=== PATIENT | male | born 1930 | race African-American/Black ===

== ENCOUNTER 2019-10-16 13:43 | Inpatient (IN) | payer MEDICARE ==
[~2019-10-16] VITALS: Ht 172.7 cm; Wt 64.4 kg
--- NOTE | 2019-10-16 14:25 | NUR ---
IV LINE STARTED BLOOD DRAWN AND SENT TO LAB.
--- NOTE | 2019-10-16 14:57 | NUR ---
DR YEUNG AT BEDSIDE FOR EVAL.
[2019-10-16 15:18] LABS: BASOPHILS # (AUTO) 0.1 /CMM (0.0-0.2); BASOPHILS % (AUTO) 0.7 % (0.0-2.0); EOSINOPHILS % (AUTO) 3.3 % (0.0-6.0); HEMATOCRIT 23 % (39-51); HEMOGLOBIN 7.2 g/dL (13.5-17.5); LYMPHOCYTES % (AUTO) 11.2 % (20.0-44.0); MEAN CORPUSCULAR HGB CONC 31 g/dl (31.0-36.0); MEAN CORPUSCULAR VOLUME 74 fL (80-96); MONOCYTES # (AUTO) 1.1 /CMM (0.1-1.30); MONOCYTES % (AUTO) 11.7 % (2.0-12.0); NEUTROPHILS # (AUTO) 6.7 /CMM (1.8-8.9); NEUTROPHILS % (AUTO) 73.1 % (43.0-81.0); PLATELET COUNT (AUTO) 298 /CMM (150-450); RED BLOOD CELL COUNT(AUTO) 3.12 MIL/uL (4.5-6.0); WHITE BLOOD COUNT (AUTO) 9.2 K/uL (4.3-11.0)
[2019-10-16 15:36] LABS: ALBUMIN 2.1 g/dL (3.4-5.0); BILIRUBIN,DIRECT 0.1 mg/dL (0.0-0.2); BILIRUBIN,TOTAL 0.3 mg/dL (0.2-1.0); CALCIUM, SERUM 8.7 mg/dL (8.5-10.1); CREATININE 1.2 mg/dL (0.6-1.3); POTASSIUM 3.9 mmol/L (3.5-5.1); TOTAL PROTEIN, SERUM 8.4 g/dL (6.4-8.2)
--- NOTE | 2019-10-16 16:05 | NUR ---
CALLED NURSING SUP FOR TELE BED.
[2019-10-16] MEDS ORDERED: POTA-10 GT (16:08)
[2019-10-16] MEDS ORDERED: POLY17PO4 GT (16:08)
[2019-10-16] MEDS ORDERED: LORA10TA7 GT (16:08)
[2019-10-16] MEDS ORDERED: MAGN400O6 GT (16:08)
[2019-10-16] MEDS ORDERED: FLUT16SP16 NS (16:08)
[2019-10-16] MEDS ORDERED: CHOL200076 GT (16:08)
[2019-10-16] MEDS ORDERED: BISA10SU61 RC (16:08)
[2019-10-16] MEDS ORDERED: MULT-439 GT (16:08)
[2019-10-16] MEDS ORDERED: DICL100G16 TP (16:08)
[2019-10-16] MEDS ORDERED: LACT-96 GT (16:08)
[2019-10-16] MEDS ORDERED: ALFU10TA10 GT (16:08)
[2019-10-16] MEDS ORDERED: SENN-175 GT (16:08)
[2019-10-16] MEDS ORDERED: AMLO10TA4 GT (16:08)
[2019-10-16] MEDS ORDERED: CITA10TA17 GT (16:08)
[2019-10-16] MEDS ORDERED: FERR325T23 GT (16:08)
[2019-10-16] MEDS ORDERED: ATOR20TA GT (16:08)
[2019-10-16] MEDS ORDERED: MIRT15TA GT (16:08)
[2019-10-16] MEDS ORDERED: NA P133E RC (16:08)
[2019-10-16] MEDS ORDERED: ASCO500T10 GT (16:08)
[2019-10-16] MEDS ORDERED: ACET-2605 PO (16:08)
[2019-10-16] MEDS ORDERED: ACET325T53 GT (16:08)
[2019-10-16] MEDS ORDERED: ZINC1CAP3 GT (16:08)
[2019-10-16] MEDS ORDERED: AMIN887L GT (16:08)
--- NOTE | 2019-10-16 16:18 | NUR ---
PAGED [facility].
[2019-10-16] MEDS ORDERED: LORATADINE 10 MG TABLET GT PRN (16:30)
[2019-10-16] MEDS ORDERED: ONDANSETRON HCL/PF 4 MG/2 ML VIAL IVP PRN (16:30)
[2019-10-16] MEDS ORDERED: MAGNESIUM HYDROXIDE 30 ML UDC GT PRN (16:30)
[2019-10-16] MEDS ORDERED: MAG HYDROX/AL HYDROX/SIMETH 30 ML UDC PO PRN (16:30)
[2019-10-16] MEDS ORDERED: ACETAMINOPHEN 325 MG TABLET PO PRN ×2 (16:30)
[2019-10-16] MEDS ORDERED: Z GUARD REMEDY 2 OZ OINT TP PRN (16:30)
[2019-10-16] MEDS ORDERED: NA PHOS,M-B/NA PHOS,DI-BA 1 EA ENEMA RC PRN (16:30)
--- NOTE | 2019-10-16 16:37 | NUR ---
NURSING SUP GAVE [phone].
--- NOTE | 2019-10-16 17:09 | NUR ---
REPORT GIVEN TO NIESHA GUAMAN FOR JULIO.
--- NOTE | 2019-10-16 17:55 | NUR ---
STOPPER MAKER NOTES ALERT AND ORIENTED X2. NO SOB. DENIES ANY C/O PAIN NOR DISCOMFORT AT THIS TIME. RIGHT AC # 18 INTACT AND PATENT. ON TELE MONITORING SR: 75. ABLE TO MOVE EXTREMITY WITHOUT DIFFICULTY. GT INTACT AND PATENT. ORIENTED PATIENT TO ROOM, CALL LIGHT AND UNIT. BED IN LOWEST POSITION, LOCKED. BED ALARM ON. CALL LIGHT WITHIN REACH. ABLE TO VERBALIZE NEEDS.
--- NOTE | 2019-10-16 18:30 | NUR ---
ENGINEER/CONDUCTOR NOTES RECEIVED ORDER FOR 1PRBC
--- NOTE | 2019-10-16 19:00 | NUR ---
DIGITAL MARKETER NOTES PATIENT RESTING COMFORTABLY IN BED, WATCHING TV. NO S/S OF RESPIRATORY DISTRESS. DENIES ANY C/O PAIN NOR DISCOMFORT AT THIS TIME. RIGHT AC # 18 INTACT AND PATENT INFUSING NS AT 75ML/HR JENNY WELL. ON TELE MONITORING SR: 78. GT INTACT AND PATENT. ORIENTED PATIENT TO ROOM, CALL LIGHT AND UNIT. BED IN LOWEST POSITION, LOCKED. BED ALARM ON. CALL LIGHT WITHIN REACH. ABLE TO VERBALIZE NEEDS. IN NO APPARENT DISTRESS.
[2019-10-16] MEDS: IV NS 0.9% 1,000 ML IV PRN (19:29)
--- NOTE | 2019-10-16 19:30 | NUR ---
RN OPENING NOTES RECEIVED PATIENT AWAKE IN BED. A/OX2-3. NO SIGNS OF DISTRESS OR DISCOMFORT. BREATHING EVEN AND UNLABORED. ON TELE MONITORING WITH SR 66 NOTED. IV ACCESS IN RAC WITH NS INFUSING, PATENT AND INTACT, NO SIGNS OF REDNESS OR INFILTRATION. GTUBE INTACT, WITH NO RESIDUAL NOTED. BED IN LOW LOCKED POSITION WITH SIDE RAILS X2. CALL LIGHT WITHIN REACH. WILL CONTINUE TO MONITOR.
[2019-10-16 20:13] VITALS: BP 120/66
[2019-10-16] MEDS: JEVITY 1.2 CAL 1,000 ML BOTTLE GT PRN (20:32)
[2019-10-16 23:50] VITALS: BP 115/72
[2019-10-17] VITALS (9 sets, daily range): BP systolic 120–145; BP diastolic 52–84
--- NOTE | 2019-10-17 07:03 | NUR ---
RN CLOSING NOTES PATIENT AWAKE IN BED. A/OX2-3. NO SIGNS OF DISTRESS OR DISCOMFORT. BREATHING EVEN AND UNLABORED. ON TELE MONITORING WITH SR 67 NOTED. IV ACCESS IN RAC WITH NS INFUSING, PATENT AND INTACT, NO SIGNS OF REDNESS OR INFILTRATION. GTUBE INTACT, WITH NO RESIDUAL NOTED. ALL NEEDS MET. NO SIGNIFICANT CHANGES THROUGH THE NIGHT. PATIENT KEPT CLEAN DRY AND COMFORTABLE. REPOSITIONED Q2H. BED IN LOW LOCKED POSITION WITH SIDE RAILS X2. CALL LIGHT WITHIN REACH. WILL ENDORSE TO AM SHIFT FOR JULIO.
--- NOTE | 2019-10-17 07:05 | NUR ---
CHALK TESTER OPENING NOTES RECEIVED PATIENT IN BED, AWAKE IN AT THIS TIME WITH HOB ELEVATED TO SEMI FOWLERS POSITION. A/OX2-3. PT APPEARS COMFORTABLE WITH NO S/S OF ANY ACUTE DISTRESS. RESPIRATIONS ARE EVEN AND UNLABORED. PT ON TELEMETRY SENIOR BI ARCHITECT WITH SR 68 NOTED. IV ACCESS IN RAC NS INFUSING NS@75ML/HR WELL, PATENT AND INTACT. GTUBE INTACT. BED IN LOWEST LOCKED POSITION, SIDE RAILS X2. CALL LIGHT WITHIN REACH. WILL CONTINUE TO MONITOR.
[2019-10-17 07:29] LABS: BASOPHILS % (AUTO) 0.5 % (0.0-2.0); HEMATOCRIT 26 % (39-51); HEMOGLOBIN 7.9 g/dL (13.5-17.5); MEAN CORPUSCULAR HGB CONC 31 g/dl (31.0-36.0); MEAN CORPUSCULAR VOLUME 77 fL (80-96); MONOCYTES % (AUTO) 12.8 % (2.0-12.0); NEUTROPHILS # (AUTO) 5.7 /CMM (1.8-8.9); NEUTROPHILS % (AUTO) 70.7 % (43.0-81.0); PLATELET COUNT (AUTO) 303 /CMM (150-450); RED BLOOD CELL COUNT(AUTO) 3.33 MIL/uL (4.5-6.0); WHITE BLOOD COUNT (AUTO) 8.1 K/uL (4.3-11.0)
[2019-10-17 07:57] LABS: CALCIUM, SERUM 8.8 mg/dL (8.5-10.1); CREATININE 1.2 mg/dL (0.6-1.3); MAGNESIUM 2.5 mg/dL (1.8-2.4); PHOSPHORUS 3.7 mg/dL (2.5-4.9); POTASSIUM 3.6 mmol/L (3.5-5.1)
--- NOTE | 2019-10-17 09:48 | NUR ---
PT WAS SEEN BY DR HULL AND ORDERED TO FLUSH GT WITH WATER AND ASPIRATE WITH ORDERS TO RESUME GT FEEDING AND SEND A PHOTO OF PT'S STOOL TO DR HULL.
[2019-10-17] MEDS: CITALOPRAM HYDROBROMIDE 10 MG TABLET GT SCH (09:56)
[2019-10-17] MEDS: PANTOPRAZOLE 40 MG VIAL IV SCH (09:56)
[2019-10-17] MEDS: FLUTICASONE PROPIONATE 16 GM BOTTLE NS SCH (10:12)
--- NOTE | 2019-10-17 10:30 | NUR ---
PT WAS SEEN BY KATE Cannon FOR [facility] AND KATE STATED THAT PT CAN'T TOLERATE FLUIDS/APPLE SAUCE, PT THREW UP DURING EVAL. RESUMED GT FEEDING PER DR HULL AND KATE,ST STATED TO BE ABLE TO GIVE THIN LIQUIDS WITH ASP PRECAUTIONS PER PT REQUEST.
[2019-10-17 11:19] LABS: IRON, SERUM 35 ug/dl (50-175); TOTAL IRON BINDING CAPACITY 107 ug/dl (250-450)
[2019-10-17 16:29] LABS: OCCULT BLOOD STOOL POSITIVE (NEGATIVE)
[2019-10-17] MEDS: IV NS 0.9% 1,000 ML IV PRN (17:01)
--- NOTE | 2019-10-17 17:20 | NUR ---
NOTIFIED DR HULL FOR PT NOT HAVING BM AT THIS TIME.PT'S STOOL OB CAME OUT POSITIVE-DR HULL AWARE AND ORDERED TO JUST CHECK TOMORROW'S HGB LEVEL AND IF STABLE OK TO DC.PT IS ABLE TO DRINK WATER WITHOUT COUGHING. TOLERATING WELL.WILL CONTINUE TO MONITOR.
--- NOTE | 2019-10-17 19:10 | NUR ---
MS RN CLOSING NOTES PT IN BED, AWAKE AT THIS TIME. A/OX2-3. PT APPEARS COMFORTABLE WITH NO S/S OF ANY ACUTE DISTRESS. BREATHINGS ARE EVEN AND UNLABORED. ATTENDED TO ALL PT CARE NEEDS ANTICIPATED. IV ACESS IN RAC PATENT, INTACT AND INFUSING NS@75ML/HR WELL. PT ON GTUBE FEEDING JEVITY 1.2@75ML/HR, GTUBE INTACT. PT TOLERATING GTUBE WELL WITH NO RESIDUAL NOTED. SAFETY AND ASPIRATION PRECAUTIONS IN PLACE, BED IN LOWEST LOCKED POSITION, SIDE RAILS UP X 2, CALL LIGHT WITHIN REACH WILL ENDORSE TO NIGHT NURSE FOR JULIO
--- NOTE | 2019-10-17 20:54 | NUR ---
RN OPENING NOTES RECEIVED PATIENT AWAKE IN BED. A/OX2-3. NO SIGNS OF DISTRESS OR DISCOMFORT. BREATHING EVEN AND UNLABORED. IV ACCESS IN RAC WITH NS INFUSING, PATENT AND INTACT, NO SIGNS OF REDNESS OR INFILTRATION. GTUBE INTACT, WITH FEEDING RUNNING, NO RESIDUAL NOTED. BED IN LOW LOCKED POSITION WITH SIDE RAILS X2. CALL LIGHT WITHIN REACH. WILL CONTINUE TO MONITOR.
[2019-10-18] MEDS: JEVITY 1.2 CAL 1,000 ML BOTTLE GT PRN (04:15)
[2019-10-18] MEDS: IV NS 0.9% 1,000 ML IV PRN (06:07)
[2019-10-18 06:39] LABS: BASOPHILS # (AUTO) 0.1 /CMM (0.0-0.2); BASOPHILS % (AUTO) 0.7 % (0.0-2.0); EOSINOPHILS % (AUTO) 3.9 % (0.0-6.0); HEMATOCRIT 24 % (39-51); HEMOGLOBIN 7.5 g/dL (13.5-17.5); LYMPHOCYTES # (AUTO) 0.9 /CMM (0.8-4.8); LYMPHOCYTES % (AUTO) 10.6 % (20.0-44.0); MEAN CORPUSCULAR HGB CONC 32 g/dl (31.0-36.0); MEAN CORPUSCULAR VOLUME 76 fL (80-96); MONOCYTES # (AUTO) 0.8 /CMM (0.1-1.30); MONOCYTES % (AUTO) 10.3 % (2.0-12.0); NEUTROPHILS # (AUTO) 6.1 /CMM (1.8-8.9); NEUTROPHILS % (AUTO) 74.5 % (43.0-81.0); PLATELET COUNT (AUTO) 279 /CMM (150-450); RED BLOOD CELL COUNT(AUTO) 3.14 MIL/uL (4.5-6.0); WHITE BLOOD COUNT (AUTO) 8.2 K/uL (4.3-11.0)
[2019-10-18 06:49] LABS: CALCIUM, SERUM 8.2 mg/dL (8.5-10.1); CREATININE 1.1 mg/dL (0.6-1.3); MAGNESIUM 2.2 mg/dL (1.8-2.4); POTASSIUM 3.5 mmol/L (3.5-5.1)
--- NOTE | 2019-10-18 07:19 | NUR ---
RN CLOSING NOTES PATIENT AWAKE IN BED. A/OX2-3. NO SIGNS OF DISTRESS OR DISCOMFORT. BREATHING EVEN AND UNLABORED. IV ACCESS IN RAC WITH NS INFUSING, PATENT AND INTACT, NO SIGNS OF REDNESS OR INFILTRATION. GTUBE INTACT, WITH NO RESIDUAL NOTED. ALL NEEDS MET. NO SIGNIFICANT CHANGES THROUGH THE NIGHT. PATIENT KEPT CLEAN DRY AND COMFORTABLE. REPOSITIONED Q2H. BED IN LOW LOCKED POSITION WITH SIDE RAILS X2. CALL LIGHT WITHIN REACH. WILL ENDORSE TO AM SHIFT FOR JULIO.
--- NOTE | 2019-10-18 07:30 | NUR ---
received pt. in am.alert and oriented x2-3.pleasant.vs stable.skin warm and dry.hob elevated.g-tube infusing.no acute distress,no complaints offered.
[2019-10-18 08:00] VITALS: BP 132/63
[2019-10-18] MEDS ORDERED: PANT40TA2 PO (10:45)
[2019-10-18] MEDS ORDERED: FERR325T23 GT (10:45)
[2019-10-18] MEDS: PANTOPRAZOLE 40 MG VIAL IV SCH (11:09)
[2019-10-18] MEDS: CITALOPRAM HYDROBROMIDE 10 MG TABLET GT SCH (11:10)
[2019-10-18] MEDS: FLUTICASONE PROPIONATE 16 GM BOTTLE NS SCH (11:10)
--- NOTE | 2019-10-18 12:30 | NUR ---
dr. garay in with plans for discharge.
[2019-10-18] MEDS ORDERED: SOD FERRIC GLUC 125 MG in IV NS 0.9% 100 ML IV SCH (14:00)
--- NOTE | 2019-10-18 14:30 | NUR ---
urine sent per dr. ferrer"s orders.
[2019-10-18 16:00] VITALS: BP 139/73
[2019-10-18] MEDS ORDERED: MUPIROCIN OINT 2% 22 GM TUBE SCH (16:00)
--- NOTE | 2019-10-18 16:20 | NUR ---
starr mills and plans being made for dc today.pt. endorsed to angelica mueller.
--- NOTE | 2019-10-18 16:21 | NUR ---
ms rn received on bed, awake,alert,oriented x3,not in any form of distress, respirations even and unlabored,no sob noted, patient to be discharge today..
--- NOTE | 2019-10-18 16:45 | NUR ---
ms rn patient ready to be discharge, refused to take pictures on small scabs on both legs,no distress noted.
--- NOTE | 2019-10-18 17:00 | NUR ---
ms rn patient to be discharge today, report given to Praveen,patient went to [facility] via ambulance.
[2019-10-18 19:59] LABS: APPEARANCE,URINE CLEAR (CLEAR); BILIRUBIN,URINE NEGATIVE (NEGATIVE); BLOOD, URINE NEGATIVE Ery/uL (NEGATIVE); COLOR,URINE YELLOW (YELLOW); KETONES,URINE NEGATIVE (NEGATIVE); LEUKOCYTE ESTERASE ,URINE NEGATIVE (NEGATIVE); NITRITE, URINE NEGATIVE (NEGATIVE); PH,URINE 7.5 (5.0-8.0); PROTEIN,URINE NEGATIVE (NEGATIVE); UGLUCOSE NEGATIVE (NEGATIVE); UROBILINOGEN,URINE 0.2 EU/dL (0.2)
[2019-10-18 20:02] LABS: EOSINOPHIL,URINE None Seen
[2019-10-18 20:05] LABS: CREATININE, URINE 45.7 MG/DL (30.0-125.0); URINE TOTAL PROTEIN 27.6 mg/dL (0-11.9)
== END 2019-10-18 18:50 | DRG 377 ==
LOC: ER 13:50 → MED 17:09 → TELE 17:36 → MED 10-17 10:11
PROVIDERS: ADMIT Internal Medicine; ATTEND Internal Medicine
PROC: 30233N1 Transfusion of Nonautologous Red Blood Cells into Peripheral Vein, Percutaneous Approach (ICD-10-PCS; principal; 2019-10-16)
DX: K92.2 Gastrointestinal hemorrhage, unspecified (principal); N17.0 Acute kidney failure with tubular necrosis; G93.41 Metabolic encephalopathy; D62 Acute posthemorrhagic anemia; I12.9 Hypertensive chronic kidney disease with stage 1 through stage 4 chronic kidney disease, or unspecified chronic kidney disease; N40.0 Benign prostatic hyperplasia without lower urinary tract symptoms; J44.9 Chronic obstructive pulmonary disease, unspecified; R13.10 Dysphagia, unspecified; K21.9 Gastro-esophageal reflux disease without esophagitis; F32.9 Major depressive disorder, single episode, unspecified; E78.5 Hyperlipidemia, unspecified; Z86.73 Personal history of transient ischemic attack (TIA), and cerebral infarction without residual deficits; N18.2 Chronic kidney disease, stage 2 (mild); Z87.19 Personal history of other diseases of the digestive system; Z85.118 Personal history of other malignant neoplasm of bronchus and lung; Z93.1 Gastrostomy status; D63.8 Anemia in other chronic diseases classified elsewhere; F01.50 Vascular dementia, unspecified severity, without behavioral disturbance, psychotic disturbance, mood disturbance, and anxiety
CPT/HCPCS: 36415; 71045-TC; 80048-TC; 80076-TC; 81000-TC; 82272-TC; 82570-TC; 83540-TC; 83735-TC; 84100-TC; 84155-TC; 84300-TC; 85025-TC; 85730-TC; 86850-TC; 86921-TC; 87081-TC; 92526; 92611-TC; 97110-TC; 97112-TC; 97530-TC; C9113; G0378; J2916; J7030; J7050; P9016-BL